=== PATIENT | male | born 1960 | race Caucasian/White ===

== ENCOUNTER 2018-11-26 16:48 | Emergency (ER) | payer OTHER ==
--- NOTE | 2018-11-26 17:37 | ERPHSYRPT ---
- History of Present Illness Time Seen by Provider: 11/26/18 17:00 Source: patient Exam Limitations: clinical condition Patient Subjective Stated Complaint: middle finger L hand. Injured initially last . reinjured thu. Pt describes heavy object dropped on had both times Triage Nursing Assessment: pt in no obvious distress states pain6/10 Physician History: PATIENT INJURED HIS LEFT MIDDLE FINGER TIP 2 DAYS AT WORK, DROPPED OBJECT ONTO HAND. PATIENT COMPLAINS OF PAIN WITH SWELLING OVER FINGER TIP. Occurred: yesterday Method of Injury: direct blow Quality: constant Severity of Pain-Max: moderate Severity of Pain-Current: moderate Extremities Pain Location: 3rd finger: left Modifying Factors: Improves With: movement Associated Symptoms: none Allergies/Adverse Reactions: No Known Drug Allergies Allergy (Verified 01/22/16 08:46) Home Medications: Gabapentin 0 mg PO UD 01/22/16 [History] Tramadol HCl 50 mg [Ultram 50 mg] 50 mg PO UD 01/22/16 [History] Hx Tetanus, Diphtheria Vaccination/Date Given: Yes Hx Influenza Vaccination/Date Given: Yes Hx Pneumococcal Vaccination/Date Given: Yes Immunizations Up to Date: Yes - Review of Systems Musculoskeletal: Injury, Joint Pain, Joint Swelling - Past Medical History Pertinent Past Medical History: Yes Neurological History: No Pertinent History Cardiac History: No Pertinent History, High Cholesterol Respiratory History: No Pertinent History Endocrine Medical History: Hyperthyroidism Musculoskeletal History: Fractures, Osteoarthritis GI Medical History: No Pertinent History History: No Pertinent History Psycho-Social History: No Pertinent History Male Reproductive Disorders: No Pertinent History Other Medical History: thyroid tested high, - Past Surgical History Past Surgical History: Yes Neuro Surgical History: No Pertinent History Cardiac: No Pertinent History Respiratory: No Pertinent History Gastrointestinal: Hernia Repair Musculoskeletal: Orthopedic Surgery Other Surgical History: HERNIA REPAIR. - Social History Smoking Status: Current every day smoker How long have you smoked: 25 y Exposure to second hand smoke: Yes Drug Use: marijuana Patient Lives Alone: No - Nursing Vital Signs Nursing Vital Signs: Initial Vital Signs Temperature 98.0 F 11/26/18 16:49 Pulse Rate 70 11/26/18 16:49 Respiratory Rate 20 11/26/18 16:49 Blood Pressure 113/86 11/26/18 16:49 O2 Sat by Pulse Oximetry 97 11/26/18 16:49 Pain Scale Pain Intensity 6 - Physical Exam Hand Exam: soft tissue tenderness (SWELLING TENDERNESS DISTAL PHALANGE LEFT MIDDLE FINGER, SUBUNGAL HEMATOMA) SpO2: 97 - Radiology Exams Left Hand X-ray Interpretation: Reviewed by me (DISPLACED FRACTURE TUFF DISTAL PHALANGX LEFT MIDDLE FINGER) Ordered Tests: Active Orders 24 hr Category Date Time Status Splint STAT Care 11/26/18 17:30 Active HAND (MINIMUM 3 VIEWS) Stat Exams 11/26/18 Ordered - Progress Progress Note: 11/26/18 17:35 REFUSES ANALGESICS, ALUMINUM SPLINT APPLIED. Counseled pt/family regarding: diagnosis, need for follow-up, rad results - Departure Departure Disposition: Home Clinical Impression: LEFT MIDDLE FINGER FRACTURE Condition: Stable Critical Care Time: No Referrals: [facility] [Primary Care Provider] - Additional Instructions: TYLENOL OR MOTRIN FOR PAIN NEEDED. APPLY ICE OVER FINGER SWELLING EVERY 4 HOURS, 30 MINUTES FOR 48 HOURS.
[2018-11-26 17:40] VITALS: BP 132/94; PULSE 64; O2SAT 99
--- NOTE | 2018-11-26 21:49 | XRAY ---
Indication: Third finger pain following injury. Comparison: January 29, 2016. 3 views of the left hand demonstrates new minimally displaced third tuft fracture. No other bony, articular, or soft tissue abnormalities.
== END 2018-11-26 17:45 | disposition home or self-care (01) ==
LOC: ED 16:48
DX: S62.663A Nondisplaced fracture of distal phalanx of left middle finger, initial encounter for closed fracture (principal); M79.89 Other specified soft tissue disorders; M79.645 Pain in left finger(s); W22.8XXA Striking against or struck by other objects, initial encounter; Y93.89 Activity, other specified; Y92.89 Other specified places as the place of occurrence of the external cause; Y99.0 Civilian activity done for income or pay; Z79.899 Other long term (current) drug therapy
CPT/HCPCS: 73130; 99283

== ENCOUNTER 2020-03-01 13:21 | Emergency (ER) | payer OTHER ==
--- NOTE | 2020-03-01 13:26 | ERPHSYRPT ---
- History of Present Illness Time Seen by Provider: 03/01/20 13:26 Source: patient Exam Limitations: no limitations Physician History: This is a 59-year-old white male who was working with a hammer of some type and it hit his intended target but then flipped up knocking him in the face and head. He did not lose consciousness but fell backwards. He has complaints of a headache, neck pain and loose tooth on the right upper incisor region. There is also a laceration on his right parietal scalp anteriorly. His tetanus status is up-to-date per his report. Not on any anticoagulation therapy Occurred: just prior to arrival, this morning Severity: mild (Anteriorly) Head Injury Location: parietal Method of Injury: direct blow Loss of Consciousness: no loss of consciousness Associated Symptoms: denies symptoms Allergies/Adverse Reactions: No Known Drug Allergies Allergy (Verified 01/22/16 08:46) Home Medications: Gabapentin 0 mg PO UD 01/22/16 [History] Tramadol HCl 50 mg [Ultram 50 mg] 50 mg PO UD 01/22/16 [History] Hx Tetanus, Diphtheria Vaccination/Date Given: Yes Hx Influenza Vaccination/Date Given: Yes Hx Pneumococcal Vaccination/Date Given: Yes Travel Risk - International Travel Have you traveled outside of the country in past 3 weeks: No - Coronavirus Screening Are you exhibiting any of the following symptoms?: No Close contact with a COVID-19 positive Pt in past 14-21 Days: No - Review of Systems Constitutional: No Symptoms Eyes: No Symptoms Ears, Nose, & Throat: No Symptoms Respiratory: No Symptoms Cardiac: No Symptoms Abdominal/Gastrointestinal: No Symptoms Genitourinary Symptoms: No Symptoms Musculoskeletal: No Symptoms Skin: Other (Scalp laceration right parietal region) Neurological: Headache Psychological: No Symptoms Endocrine: No Symptoms Hematologic/Lymphatic: No Symptoms Immunological/Allergic: No Symptoms All Other Systems: Reviewed and Negative - Past Medical History Pertinent Past Medical History: Yes Neurological History: No Pertinent History Cardiac History: No Pertinent History, High Cholesterol Respiratory History: No Pertinent History Endocrine Medical History: Hyperthyroidism Musculoskeletal History: Fractures, Osteoarthritis GI Medical History: No Pertinent History History: No Pertinent History Psycho-Social History: No Pertinent History Male Reproductive Disorders: No Pertinent History Other Medical History: thyroid tested high, - Past Surgical History Past Surgical History: Yes Neuro Surgical History: No Pertinent History Cardiac: No Pertinent History Respiratory: No Pertinent History Gastrointestinal: Hernia Repair Musculoskeletal: Orthopedic Surgery Other Surgical History: HERNIA REPAIR. - Social History Smoking Status: Current every day smoker How long have you smoked: 25 y Exposure to second hand smoke: Yes Drug Use: marijuana Patient Lives Alone: No - Nursing Vital Signs Nursing Vital Signs: Initial Vital Signs Temperature 98.2 F 03/01/20 13:27 Pulse Rate 75 03/01/20 13:27 Respiratory Rate 22 03/01/20 13:27 Blood Pressure 139/86 03/01/20 13:27 O2 Sat by Pulse Oximetry 95 03/01/20 13:27 Pain Scale Pain Intensity 8 - [place] Coma Score Best Eye Response (Alfredo): (4) open spontaneously Best Verbal Response (Alfredo): (5) oriented Best Motor Response (Alfredo): (6) obeys commands Alfredo Total: 15 - Physical Exam General Appearance: no apparent distress, alert, anxiety Head Injury: lacerations (2 centimeter right parietal, anterior laceration. Not actively bleeding. No foreign body) Eye Exam: bilateral eye: normal inspection, PERRL, EOMI ENT Exam: airway nml, evidence of ENT injury, dental injury (Right upper incisor. Patient has general poor dentition. The remaining portion of the incisor is loose. 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 Laceration was evaluated in a bloodless field all the way to the base) Irrigated: Yes Hibiclens Prep: Yes Wound Repaired With: Deep (4 total) Progress: 03/01/20 13:40 Procedure note: This patient has a 2 cm laceration in the anterior parietal region on the right side. There is no active bleeding. The wound was irrigated out well and scrubbed out well with Hibiclens/sterile water solution. The laceration was then approximated with 4 deep. The patient tolerated the procedure well and there is no complication. The wound was then dried and antibiotic ointment was placed overlying the laceration repair site. Ordered Tests: Active Orders 24 hr Category Date Time Status CERVICAL SPINE WO CONTRAST [CT] Stat Exams 03/01/20 13:33 Completed FACIAL BONES WO CONTRAST [CT] Stat Exams 03/01/20 13:33 Completed HEAD WITHOUT CONTRAST [CT] Stat Exams 03/01/20 13:33 Completed Medication Summary Discontinued Medications Generic Name Dose Route Start Last Admin Trade Name Freq PRN Reason Stop Dose Admin Bacitracin Zinc 0.9 gm 03/01/20 13:41 03/01/20 13:46 Baciguent Packet TP 03/01/20 13:42 0.9 gm STAT ONE Administration Bacitracin Zinc Confirm 03/01/20 13:45 Baciguent Packet Administered 03/01/20 13:46 Dose 1 gm .ROUTE .STK-MED ONE - Progress Progress: improved, pain not gone completely, re-examined Progress Note: 03/01/20 14:28 CAT scan of the head shows no intracranial abnormality CAT scan of the facial bones shows no acute fracture or abnormality CAT scan of the cervical spine shows no acute fracture or subluxation. Counseled pt/family regarding: diagnosis, need for follow-up, rad results - Departure Departure Disposition: Home Clinical Impression: Head injury, Scalp laceration Condition: Stable Critical Care Time: No Referrals: [facility]OS[facility] [Primary Care Provider] - Additional Instructions: Keep the scalp laceration site dry for 24 hours. After 24 hours may wash the site daily then apply antibiotic ointment once daily. Staple removal in 8 to 10 days. Use Tylenol and ibuprofen for pain if there are no allergies or contraindications of doing so. Forms: Work/School Release Form
[2020-03-01] MEDS ORDERED: BACIGUENT PACKET TP ONE (13:41)
[2020-03-01] MEDS ORDERED: BACIGUENT PACKET ONE (13:45)
--- NOTE | 2020-03-01 14:21 | XRAY ---
Indication: Head injury with tire iron. Multiple contiguous axial images obtained through the head without contrast. Comparison: None Small right frontal scalp laceration with cutaneous deep. Otherwise normal appearing brain parenchyma, ventricles, and bony calvarium. Mastoid air cells are clear. CT facial bones and CT cervical spine reported separately. Impression: Right frontal scalp laceration. No underlying fracture or acute intracranial abnormalities.
--- NOTE | 2020-03-01 14:23 | XRAY ---
Indication: Head injury with tire iron. Multiple contiguous axial images obtained through the facial bones. Sagittal and coronal reformatted images obtained. Comparison: None No acute fracture, suspicious bony lesions, or radiopaque foreign body. Orbits including roof, pulliam, and floors intact. There is near complete opacification of the right maxillary sinus. Remaining paranasal sinuses and nasal passages are clear. Mild nasal septal deviation to the right. Visualized noncontrasted soft tissues unremarkable. CT head and CT cervical spine reported separately. Impression: 1. Right maxillary sinus disease and nasal septal deviation. 2. Remaining CT facial bones is negative.
--- NOTE | 2020-03-01 14:25 | XRAY ---
Indication: Neck pain. Head injury with tire iron. Multiple contiguous axial images obtained through the cervical spine. Sagittal and coronal reformatted images obtained. Comparison: None Axial images negative for acute fracture, suspicious bony lesions, or spinal canal stenosis. There is mild C4-C7 degenerative endplate spurring. Sagittal and coronal reformatted images demonstrates mild lordotic reversal, positional versus paraspinal spasm. Mild C4-C7 disc space narrowing. No acute compression fracture, subluxation, or jumped facet. Normal appearing craniocervical junction. Visualized noncontrasted soft tissues demonstrates mild bilateral carotid calcifications. Lung apices are clear. CT head and CT facial bones reported separately. Impression: 1. Cervical lordotic reversal, positional versus paraspinal spasm. 2. Negative acute fracture/subluxation. 3. C4-C7 degenerative changes.
[2020-03-01 14:40] VITALS: BP 125/82; PULSE 51; O2SAT 98
== END 2020-03-01 14:55 | disposition home or self-care (01) ==
LOC: ED 13:21
DX: S01.01XA Laceration without foreign body of scalp, initial encounter (principal); W20.8XXA Other cause of strike by thrown, projected or falling object, initial encounter; M54.2 Cervicalgia; Y92.89 Other specified places as the place of occurrence of the external cause; K08.89 Other specified disorders of teeth and supporting structures
CPT/HCPCS: 12001; 70450; 70486; 72125; 99283; A9270-GY